=== PATIENT | male | born 1975 | race Two or more races ===

== ENCOUNTER 2019-03-24 19:56 | Emergency (ER) | payer MEDICAID ==
[~2019-03-24] VITALS: Ht 167.6 cm; Wt 73.5 kg
[2019-03-24 20:39] VITALS: BP 142/97
== END 2019-03-24 21:16 | disposition left against medical advice (07) ==
LOC: ER 19:58
DX: J02.9 Acute pharyngitis, unspecified (principal); Z53.21 Procedure and treatment not carried out due to patient leaving prior to being seen by health care provider